=== PATIENT | male | born 1985 | race Caucasian/White ===

== ENCOUNTER 2017-06-01 04:40 | Emergency (ER) | payer OTHER ==
[~2017-06-01] VITALS: Ht 170.2 cm; Wt 75.6 kg
[2017-06-01 04:44] VITALS: Ht 170.2 cm; Wt 75.6 kg
[2017-06-01] MEDS ORDERED: METOCLOPRAMIDE HCL INJ 5 MG/ML 2 ML VIAL IV. STA (05:07)
[2017-06-01] MEDS ORDERED: PANTOprazole INJ 40 MG in SYRINGE 0 ML IV ONE (05:15)
[2017-06-01] MEDS ORDERED: SODIUM CHLORIDE 0.9% 1000ML 1,000 ML, SODIUM CHLORIDE 0.9% 1000ML 1,000 ML IV ONE (05:15)
[2017-06-01 05:22] LABS: BASO % 0.4 %; BASO ABS # 0.02 K/uL (0-0.2); EOS % 1.1 %; EOS ABS # 0.06 K/uL (0-0.5); HEMOGLOBIN 17.4 g/dL (14.0-18.0); IG# 0.01 K/uL (0.00-0.02); LYMPH % 28.1 %; MEAN CORPUSCULAR HEMOGLOBIN 32.5 pg (25-34); MEAN CORPUSCULAR HGB CONC 37.8 g/dl (32-36); MEAN PLATELET VOLUME 8.8 fL (7.4-10.4); MONO % 12.3 %; NEUT % 57.9 %; PLATELET COUNT 173 K/uL (130-400); RED CELL DISTRIBUTION WIDTH CV 12.5 % (11.5-14.5); RED CELL DISTRIBUTION WIDTH SD 39.3 fL (36.4-46.3); WHITE BLOOD COUNT 5.69 K/uL (4.8-10.8)
[2017-06-01 05:46] LABS: ALBUMIN 4.4 gm/dl (3.4-5.0); CALCIUM 9.1 mg/dl (8.5-10.1); CREATININE 0.84 mg/dl (0.60-1.40); POTASSIUM 3.6 mmol/L (3.5-5.1)
[2017-06-01 05:50] LABS: TOTAL PROTEIN 8.1 gm/dl (6.4-8.2)
[2017-06-01] MEDS ORDERED: MULT-506 PO (06:04)
--- NOTE | 2017-06-01 07:12 | DIAGNOSTIC IMAGING REPORT ---
PA CHEST WITH ABDOMINAL SERIES CLINICAL HISTORY: Nausea and vomiting. Diarrhea. FINDINGS: A PA chest radiograph is compared to study dated 05/28/2012. The cardiomediastinal silhouette is unremarkable. The lungs and pleural spaces are clear. No pneumothorax is seen. The bony thorax is grossly intact. Supine and erect abdominal radiographs are obtained. No prior studies are available for comparison at the time of dictation. There is a nonobstructed abdominal bowel gas pattern. Scattered air-fluid levels are noted in the colon. No evidence of intraperitoneal free air is seen. A calcification projecting over the right hemipelvis is indeterminate and may represent bowel contents or possibly a bone island. Suture material is seen in the right lower quadrant. The lumbosacral spine and bony pelvis appear intact. IMPRESSION: 1. No active disease in the chest. 2. Nonobstructed abdominal bowel gas pattern. 3. Air-fluid levels are noted in the colon. Correlate clinically for evidence of a diarrheal illness. 4. Suture material right lower quadrant suggests previous appendectomy. Clinical correlation will be required. 5. A calcification projecting over the right iliac wing may represent colonic contents versus a bone island. Electronically signed by: Catracho Fontana M.D. 06/01/2017 7:11 AM Dictated Date/Time: 06/01/2017 7:09 AM
[2017-06-01] MEDS ORDERED: PROM25TA9 PO (07:40)
[2017-06-01] MEDS ORDERED: PHENERGAN 25MG HOMEPACK PO ONE (07:45)
[2017-06-01 07:56] VITALS: BP 114/71; PULSE 64; TEMP 36.9; O2SAT 98
--- NOTE | 2017-06-02 02:52 | EMERGENCY ROOM VISIT NOTE ---
History First contact with patient: 04:48 Chief Complaint: VOMITING Stated Complaint: EXCESSIVE VOMITING,DIARRHEA - BLOOD IN VOMIT Nursing Triage Summary: Vomiting and diarrhea since thursday, patient notes that vomit was dark brown tonight. History of Present Illness The patient is a 32 year old male who presents to the Emergency Room with complaints of intermittent episodes of nausea, vomiting, and diarrhea for the past 2-3 days. The patient states that he had traveled to [facility] where he developed some mild diarrhea. He had about 3 loose stools initially, which increased to 6 or 7 the next day. He did have 2 episodes of emesis, which also increased to 5 or 6 episodes of primarily watery and food emesis. He has not had diarrhea in the past 36 hours, but did have return of his nausea and vomiting tonight after eating a small amount of food and drinking water. The patient also states that he was on amoxicillin about a week ago. He does not have chronic medical disease. He is status post appendectomy years ago. No other abdominal surgeries. The patient considers himself usually healthy. Review of Systems More than 10 systems were reviewed and otherwise negative with the exception of history of present illness. Past Medical/Surgical History Medical Problems: (1) Appendectomy Family History No pertinent family history Social History Smoking Status: Never Smoker Alcohol Use: occasionally Drug Use: none Marital Status: in relationship Occupation Status: employed Current/Historical Medications Scheduled Multivitamin (Multivitamin), 1 TAB PO DAILY Scheduled PRN Promethazine Hcl (Phenergan), 25 MG PO Q6H PRN for Nausea Physical Exam Vital Signs Date Time Temp Pulse Resp B/P (MAP) Pulse Ox O2 Delivery O2 Flow Rate FiO2 06/01/17 07:56 36.9 64 18 114/71 98 06/01/17 06:31 70 18 127/72 98 Room Air 06/01/17 04:44 36.9 75 18 120/79 97 Room Air Physical Exam VITALS: Vitals are noted on the nurse's note and reviewed by myself. Vital signs stable. GENERAL: Well-developed, well-nourished, white male who appears mildly ill but nontoxic. MOUTH: Mucous membranes moist. Tonsils are not enlarged. Pharynx without erythema, blood, or exudate. Uvula midline. Airway patent. NECK: Supple without nuchal rigidity. No lymphadenopathy. No thyromegaly. Cervical spine is nontender. HEART: Regular rate and rhythm without murmurs gallops or rubs. LUNGS: Clear to auscultation bilaterally without wheezes, rales or rhonchi. No retractions or accessory muscle use. ABDOMEN: Positive normal bowel sounds x 4. Soft, nontender, without masses or organomegaly. No guarding or rebound tenderness. MUSCULOSKELETAL: No muscle atrophy, erythema, or edema noted. Full range of motion without joint tenderness in all extremities. No tenting of the skin Medical Decision & Procedures ER Provider Diagnostic Interpretation: PA CHEST WITH ABDOMINAL SERIES CLINICAL HISTORY: Nausea and vomiting. Diarrhea. FINDINGS: A PA chest radiograph is compared to study dated 05/28/2012. The cardiomediastinal silhouette is unremarkable. The lungs and pleural spaces are clear. No pneumothorax is seen. The bony thorax is grossly intact. Supine and erect abdominal radiographs are obtained. No prior studies are available for comparison at the time of dictation. There is a nonobstructed abdominal bowel gas pattern. Scattered air-fluid levels are noted in the colon. No evidence of intraperitoneal free air is seen. A calcification projecting over the right hemipelvis is indeterminate and may represent bowel contents or possibly a bone island. Suture material is seen in the right lower quadrant. The lumbosacral spine and bony pelvis appear intact. IMPRESSION: 1. No active disease in the chest. 2. Nonobstructed abdominal bowel gas pattern. 3. Air-fluid levels are noted in the colon. Correlate clinically for evidence of a diarrheal illness. 4. Suture material right lower quadrant suggests previous appendectomy. Clinical correlation will be required. 5. A calcification projecting over the right iliac wing may represent colonic contents versus a bone island. Laboratory Results 06/01/17 05:10 Red Blood Count 5.35, Mean Corpuscular Volume 86.0, Mean Corpuscular Hemoglobin 32.5, Mean Corpuscular Hemoglobin Concent 37.8, Mean Platelet Volume 8.8, Neutrophils (%) (Auto) 57.9, Lymphocytes (%) (Auto) 28.1, Monocytes (%) (Auto) 12.3, Eosinophils (%) (Auto) 1.1, Basophils (%) (Auto) 0.4, Neutrophils # (Auto ) 3.30, Lymphocytes # (Auto) 1.60, Monocytes # (Auto) 0.70, Eosinophils # (Auto ) 0.06, Basophils # (Auto) 0.02 06/01/17 05:10 Test 06/01/17 05:10 06/01/17 06:19 White Blood Count 5.69 K/uL (4.8-10.8) Red Blood Count 5.35 M/uL (4.7-6.1) Hemoglobin 17.4 g/dL (14.0-18.0) Hematocrit 46.0 % (42-52) Mean Corpuscular Volume 86.0 fL (80-100) Mean Corpuscular Hemoglobin 32.5 pg (25-34) Mean Corpuscular Hemoglobin Concent 37.8 g/dl (32-36) Platelet Count 173 K/uL (130-400) Mean Platelet Volume 8.8 fL (7.4-10.4) Neutrophils (%) (Auto) 57.9 % Lymphocytes (%) (Auto) 28.1 % Monocytes (%) (Auto) 12.3 % Eosinophils (%) (Auto) 1.1 % Basophils (%) (Auto) 0.4 % Neutrophils # (Auto) 3.30 K/uL (1.4-6.5) Lymphocytes # (Auto) 1.60 K/uL (1.2-3.4) Monocytes # (Auto) 0.70 K/uL (0.11-0.59) Eosinophils # (Auto) 0.06 K/uL (0-0.5) Basophils # (Auto) 0.02 K/uL (0-0.2) RDW Standard Deviation 39.3 fL (36.4-46.3) RDW Coefficient of Variation 12.5 % (11.5-14.5) Immature Granulocyte % (Auto) 0.2 % Immature Granulocyte # (Auto) 0.01 K/uL (0.00-0.02) Anion Gap 6.0 mmol/L (3-11) Est Creatinine Clear Calc Drug Dose 119.2 ml/min Estimated GFR () 135.2 Estimated GFR (Non- 116.7 BUN/Creatinine Ratio 19.4 (10-20) Calcium Level 9.1 mg/dl (8.5-10.1) Total Bilirubin 0.9 mg/dl (0.2-1) Aspartate Amino Transf (AST/SGOT) 59 U/L (15-37) Alanine Aminotransferase (ALT/SGPT) 85 U/L (12-78) Alkaline Phosphatase 62 U/L (45-117) Total Protein 8.1 gm/dl (6.4-8.2) Albumin 4.4 gm/dl (3.4-5.0) Globulin 3.7 gm/dl (2.5-4.0) Albumin/Globulin Ratio 1.2 (0.9-2) Lipase 131 U/L (73-393) Urine Color DK YELLOW Urine Appearance CLEAR (CLEAR) Urine pH 5.5 (4.5-7.5) Urine Specific [place] 1.033 (1.000-1.030) Urine Protein TRACE (NEG) Urine Glucose (UA) NEG (NEG) Urine Ketones 1+ (NEG) Urine Occult Blood NEG (NEG) Urine Nitrite NEG (NEG) Urine Bilirubin NEG (NEG) Urine Urobilinogen NEG (NEG) Urine Leukocyte Esterase TRACE (NEG) Urine WBC (Auto) 1-5 /hpf (0-5) Urine RBC (Auto) 0-4 /hpf (0-4) Urine Hyaline Casts (Auto) 5-10 /lpf (0-5) Urine Epithelial Cells (Auto) 5-10 /lpf (0-5) Urine Bacteria (Auto) NEG (NEG) Medications Administered Medications (Trade) Dose Ordered Sig/Janeth Route Start Time Stop Time Status Last Admin Dose Admin Sodium Chloride/ Sodium Chloride 2,000 ml @ 999 mls/hr Q2H1M ONCE IV 06/01/17 05:15 06/01/17 07:15 DC 06/01/17 05:36 999 MLS/HR Metoclopramide HCl (Reglan Inj) 10 mg NOW STAT IV. 06/01/17 05:07 06/01/17 05:11 DC 06/01/17 05:36 10 MG Pantoprazole Sodium 40 mg/ Syringe 10 ml @ 5 mls/min NOW ONCE IV 06/01/17 05:15 06/01/17 05:16 DC 06/01/17 05:36 5 MLS/MIN Promethazine HCl (Phenergan 25MG Home Pack) 1 homepack UD ONCE PO 06/01/17 07:45 06/01/17 07:46 DC 06/01/17 07:44 1 HOMEPACK ED Course Physical exam and history were performed. Nursing notes, EMR, and Medication List were personally reviewed. Patient appears to have nausea, vomiting, and diarrhea symptoms for the past few days. Examination he appears ill but nontoxic. He return of his emesis today after eating dinner. IV access was established and labs were obtained. Patient was hydrated and medicated as above. Plain films are performed. Stool cultures were gathered. The patient's blood work is as above and was reviewed. He does not have a significantly elevated white blood cell count, gross anemia, bandemia, or significant electrolyte imbalance. Lipase and transaminases are nondiagnostic. X-ray does seem consistent with diarrheal process, which clinically does correlate. C. difficile was negative. The patient was reevaluated multiple times with course of his stay. He felt much better after hydration and antiemetics. Overall he does appear well for discharge home. The patient symptoms are likely viral or foodborne in etiology. I will give him a course of Phenergan to use at home. He is to follow with his primary care physician for ongoing care and was otherwise invited back to the ER with any new, worsening, or concerning symptoms. The chart was completed utilizing [employer] Speech Voice Recognition Software. Grammatical errors, random word insertions, pronoun errors, and incomplete sentences are an occasional consequence of this system due to software limitations, ambient noise, and hardware issues. Any formal questions or concerns about the content, text, or information contained within the body of this dictation should be directly addressed to the provider for clarification. . Medical Decision Differential diagnosis: Etiologies such as gastroenteritis, food borne illness, infections, diverticulitis, inflammatory bowel disease, obstruction, GI bleed, biliary pathology, as well as others were entertained. Impression Primary Impression: Nausea, vomiting, and diarrhea Departure Information Dispostion Home / Self-Care Condition GOOD Prescriptions Promethazine Hcl (Phenergan) 25 Mg Tab 25 MG PO Q6H Y for Nausea for 5 Days, #20 TAB Prov: Andrew Daniel PA-C 06/01/17 Referrals Willian Lainez Jr,D.O. (PCP) Forms HOME CARE DOCUMENTATION FORM, IMPORTANT VISIT INFORMATION Patient Instructions [facility] Additional Instructions You were seen and evaluated today on an emergency basis only. This is not a substitute for, or an effort to provide, complete comprehensive medical care. It is not possible to recognize and treat all injuries or illnesses in a single emergency department visit. For this reason it is recommended that you followup with your primary care physician with any ongoing or persistent symptoms. Take Phenergan 25 mg every 6 hours as needed for nausea. You are welcome to return to the emergency department anytime with new, worsening, or concerning symptoms.
== END 2017-06-01 07:57 | disposition home or self-care (01) ==
LOC: C.EDB 04:42
DX: R11.2 Nausea with vomiting, unspecified (principal); R19.7 Diarrhea, unspecified